=== PATIENT | male | born 1960 | race Caucasian/White ===

== ENCOUNTER 2025-10-08 09:59 | Inpatient (IN) | payer MEDICAID ==
[~2025-10-08] VITALS: Ht 182.9 cm; Wt 70.8 kg
--- NOTE | 2025-10-08 10:38 | Physician Documentation ---
History of Present Illness ~ Chief Complaint: Bite-animal Stated Complaint: DOG BITE Time Seen by MD: 10:24 HPI 64-year-old male presents to the ED with left arm wound secondary to a dog bite to and a half weeks ago. The patient has been evaluated at [facility] through wound care placed on antibiotics however there was concerns about the flap where the dog bite occured. Denies any fevers and was placed on antibiotics but he is no longer taking any. Denies any increased pain or swelling but reports that the wound is not healing well. Day of Onset: Oct 08, 2025 Tetanus within 5 years?: Yes (2024) Medication Reconciliation Allergies: Coded Allergies: No Known Allergies (Unverified , 10/08/25) Review of Systems All Other Systems at this time: Reviewed and Negative ROS As stated above in the HPI, otherwise all systems are reviewed and negative. Physical Exam Vital Signs: Temperature: 97.6, Source: Temporal, Heart Rate: 80, Respiratory Rate: 16, BP: 105/69, Pulse Oximetry: 94, Weight: 70.800 Oxygen Flow Rate: 0 Physical Exam General: Alert, no apparent distress. HEENT: PERRL, EOMI, no injection, moist mucous membranes. Neck: Full range of motion. Respiratory: Lungs clear, no respiratory distress. Extremities: Normal range of motion, no deformity. Arm has a notable poor healing dog bite with what appears to be necrotic tissue anterior aspect of the left forearm. Libby are currently in place that has notable discharge and drainage. Surrounding erythema Neurologic: Oriented x4. Psychiatric: Normal mood and affect. Skin: Normal color, warm and dry. No edema, no ecchymosis. Progress Results/Orders Results/Orders Vital Signs 10/08/25 10:09 Temp 97.6 Pulse 80 Resp 16 B/P (MAP) 105/69 Pulse Ox 94 O2 Flow Rate 0 Medical Decision Making Additional information obtaine: old records Findings I consulted with Dr. Vang as he was already advised of this the patient has a arrival requested hospitalist admission and likely washout and evaluation. Differential Dx:Considerations: Include: Abrasion, Allergic reaction, Anaphylaxis, Cellulitis, Contusion, Fracture, Hematoma, Insect envenomation, Laceration, Neurovascular injury, Punture wound, Retained foreign body, Urticaria, Other Departure Disposition: ADMITTED INPATIENT Impression: Primary Impression: Dog bite Additional Impression: Infection Condition: Stable Referrals: NO PRIMARY CARE PROVIDER (PCP) Signature Scribe Signature: t Attestation: Scribed for Eder Dobbs Direct Support Staff by Eder Walker NP . 10/08/25 10:46 EDER DOBBS NP Oct 08, 2025 10:38
[2025-10-08] MEDS ORDERED: potassium Cl 40MEQ/1/2NS 520ml 520 ML IV PRN (11:20)
[2025-10-08] MEDS ORDERED: morphine 4 MG/ML inj SYRINge IV PRN (11:20)
[2025-10-08] MEDS ORDERED: bisacodyl 10mg suppository rectal RC PRN (11:20)
[2025-10-08] MEDS ORDERED: magnesium sulf-water 2g/50mL 50 ML IV PRN (11:20)
[2025-10-08] MEDS ORDERED: magnesium Cl slow-release 64mg tablet PO PRN (11:20)
[2025-10-08] MEDS ORDERED: ondansetron/PF 4mg/2ml inj IV PRN (11:20)
[2025-10-08] MEDS ORDERED: magnesium sulf-water 4G/100mL 100 ML IV PRN (11:20)
[2025-10-08] MEDS ORDERED: magnesium hydroxide 30ml (MOM) UD suspension PO PRN (11:20)
[2025-10-08] MEDS: ampicillin inj 2 GM in normal saline 100ml IV soln 100 ML IV ONE (11:24)
[2025-10-08] MEDS: normal saline 1000ML IV soln IVB ONE (11:24)
--- NOTE | 2025-10-08 11:39 | ELECTROCARDIOGRAPH REPORT ---
[facility] Test Date: 2025-10-08 Test Time: 11:38:12 Pat Name: KATLYN ROBERTSON Department: [facility] Patient ID: [facility]-[id number] Room: [place] [address] Gender: M [employer]: : 1960 Requested By: EDER DOBBS Order Number: [id number] Reading MD: Dr. Jose Yee Measurements Intervals [place] Rate: 69 P: 64 WI: 172 QRS: 20 QRSD: 88 T: 51 QT: 383 QTc: 411 Interpretive Statements Sinus rhythm Abnormal inferior Q waves ST elevation, consider inferior injury Electronically Signed On 10-09-2025 21:13:[address] Jose Yee Please click the below link to view image of tracing.
[2025-10-08 11:52] LABS: MEAN PLATELET VOLUME 6.6 FL (7.4-10.4); RED CELL DISTRIBUTION WIDTH 15.9 % (11.5-14.5)
[2025-10-08 12:02] LABS: CREATININE 2.08 MG/DL (0.60-1.10); TOTAL CARBON DIOXIDE 17.7 MMOL/L (24-32); eCRCL 36 ML/MIN; eGFR 32 ML/MIN
[2025-10-08] MEDS: normal saline 1000ml 1,000 ML IV SCH (12:55)
[2025-10-08] MEDS ORDERED: EZET10TA80 PO (13:02)
[2025-10-08] MEDS ORDERED: ESCI-8 PO (13:02)
[2025-10-08] MEDS ORDERED: OMEP40CA21 PO (13:02)
[2025-10-08] MEDS ORDERED: AMLO5TAB16 PO (13:02)
[2025-10-08] MEDS ORDERED: APIX5TAB3 PO (13:02)
[2025-10-08] MEDS ORDERED: POTA-366 PO (13:02)
--- NOTE | 2025-10-08 13:16 | HISTORY AND PHYSICAL-Residence ---
History & Physical Providers to CC Resident Creating Document: ALFREDABRIONNA GARCIA RES ~ History of Present Illness Reason for Admit\Complaint: LEFT ARM WOUND, DOG BITE History of Present Illness This is a 64-year-old male presented to the ED with complaints of a wound on his left forearm. Patient reports that he works at [employer], and 2-1/2 weeks ago he was bit by a dog. Patient then went to [facility] where the wound was well irrigated and sadaf were placed to track down the skin flap. Patient was then sent back home on oral antibiotics which were prescribed for 10 days. Patient reports that he completed the full course of his antibiotics, went back to get his wound checked, when his skin doctor referred him back to our facility ED. Patient denies any other complaints of fevers, chills. Patient currently rates the pain as 8/10 in intensity. There is a large wound, with well-formed granulation tissue, not draining any pus, covered with skin flap with sadaf, well demarcated present on the patient's left forearm. Patient reports that he did get a tetanus shot. The dog was watched afterwards and was found to be in a normal state. Patient has a history of DVT in the left lower leg currently on blood thinner Eliquis. Allergies: Coded Allergies: No Known Allergies (Unverified , 10/08/25) Home Medications Home Medications Active Reported Potassium Chloride 20 Meq Tablet.er 1 Tab PO DAILY Eliquis (Apixaban) 5 Mg Tablet 1 Tab PO BID Ezetimibe 10 Mg Tablet 1 Tab PO DAILY Prilosec (Omeprazole) 40 Mg Capsule 1 Cap PO DAILY Amlodipine Besylate 5 Mg Tablet 1 Tab PO DAILY Escitalopram Oxalate 10 Mg Tablet 1 Tab PO DAILY Past Medical History Past Medical History History of DVT left lower extremity on Eliquis No other significant medical history Past Surgical History Surgical History Comment 2 back surgeries due to bulging discs Right knee surgery for ligament repair Family History Family History: Patient reports no known family medical history. Past Social History Social History Comment Patient started smoking since he was 18 years, continues to smoke currently 1 pack per day Patient drinks a beer now and then, once a week Denies any other illicit drug use Patient lives at home with his in [facility] with activities of daily living ROS All Other Systems: Reviewed and Negative Exam Vitals: Vital Signs Date Time Temp Pulse Resp B/P (MAP) Pulse Ox O2 Delivery O2 Flow Rate FiO2 10/08/25 12:43 102 18 130/77 (94) 99 0 10/08/25 10:09 97.6 General: General: Alert, awake, oriented, not in acute distress HEENT: PERRLA, no icterus, pallor, lymphadenopathy, carotid bruit Respiratory system: Bilateral vesicular breath sounds heard, no adventitious breath sounds CVS: S1-S2 heard, no murmurs/rubs/gallop GI: Soft, nontender, no organomegaly, no guarding/rigidity, bowel sounds present Neuro: No focal neurological deficits present Mental status exam: alert and consciousness, orientation, memory, speech - Cranial nerve test: Cranial nerves 2-12 intact - Motor system: Nutrition, Tone 3+, Power 5/5, no involuntary movements - Sensory system: Intact - Reflex testing: Biceps, triceps and knee reflexes 2+ - Cerebellar: Normal Extremities: left volar forearm has a 4 cm area of the necrotic tissues surrounding erythema and some drainage. He is able to move his fingers well and claims normal sensation distally. Skin: Warm and dry, dilated veins of the bilateral lower extremities, multiple petechiae present in bilateral upper extremities Diagnostic Data Last Recorded Lab Results: 10/08/25 1140 10/08/25 1140 Advance Care Planning Advanced Care plannin - 30 Minutes (Full code) Additional Plan Left forearm wound Dog bite Failed outpatient treatment Patient was bit by a dog 2 1/2 half weeks ago on his left forearm Currently patient is hemodynamically stable WBC count normal, Procal, lactic acid normal. Patient started on antibiotics Augmentin [id number] mg Patient on fluids NS 100 cc/hour Pain management by morphine q.6h p.r.n., [place] q.8h p.r.n. Dr. Vang has been consulted, patient will undergo surgical debridement of the necrotic tissue tomorrow in the a.m. ECHO Likely prerenal Patient's baseline creatinine unknown Current creatinine 2.08, BUN 49 Patient on fluids NS 100 cc/hour We will continue to monitor his kidney function Mild hypokalemia- K-3.1 Patient on potassium replacement protocol History of DVT Patient on Eliquis 5 mg Code status: Full code Diet: Regular diet DVT prophylaxis: Eliquis Disposition: Patient transferred to the surgical floor. We will continue to monitor him. Patient likely to undergo surgical debridement of necrotic tissue tomorrow. Brionna Paez PGY-1 Date of Service: Oct 08, 2025 Billing Provider: LESLY GÓMEZ MD Common Visit Codes: [id number] INP/OBS CARE (HIGH) Secondary Visit Codes: [id number] CARE PLAN 30 MINUTES BRIONNA PAEZ, RES Oct 08, 2025 13:16 LESLY GÓMEZ MD Oct 08, 2025 19:55
[2025-10-08 13:45] VITALS: BP 108/66; PULSE 76; RESP 16; TEMP 98; O2SAT 95
--- NOTE | 2025-10-08 14:07 | CONSULTATION REPORT ---
History of Present Illness Providers to CC ~ Reason for Admit\Admit Dx: LEFT ARM WOUND, DOG BITE Refering MD: Jessica History of Present Illness This is a 64-year-old male presented to the ED with complaints of a wound on his left forearm. Patient reports that he works at [employer], and 2-1/2 weeks ago he was bit by a dog. Patient then went to [facility] where the wound was well irrigated and sadaf were placed to track down the skin flap. Patient was then sent back home on oral antibiotics which were prescribed for 10 days. And treated by Dr. Alyson Schneider at wound care and she was concerned that the wound was becoming worse. The patient was then advised to return to the ER today to be admitted Allergies: Coded Allergies: No Known Allergies (Unverified , 10/08/25) Home Medications Home Medications Active Reported Potassium Chloride 20 Meq Tablet.er 1 Tab PO DAILY Eliquis (Apixaban) 5 Mg Tablet 1 Tab PO BID Ezetimibe 10 Mg Tablet 1 Tab PO DAILY Prilosec (Omeprazole) 40 Mg Capsule 1 Cap PO DAILY Amlodipine Besylate 5 Mg Tablet 1 Tab PO DAILY Escitalopram Oxalate 10 Mg Tablet 1 Tab PO DAILY Past Family History Family History: Patient reports no known family medical history. Physical Exam Last Vital Signs Recorded: Temperature: 98.0, Source: Oral, Heart Rate: 76, Respiratory Rate: 16, BP: 108/66, Pulse Oximetry: 95, Weight: 70.800 General Appearance: alert, no apparent distress Extremities Left volar forearm has a 4 cm area of the necrotic tissues surrounding erythema and some drainage. He is able to move his fingers well and claims normal sensation distally. Results Diagram Lab Result Diagram: 10/08/25 1140 10/08/25 1140 Assessment/Plan Problems/Diagnosis: (1) Dog bite (2) Infection Additional Plan Surgical debridement is planned for tomorrow morning to remove necrotic tissue and completely irrigate the area. In the several debridements. Spoke with the patient about his condition and he agrees to proceed with surgery. AMBER LOCKWOOD Jr., MD Oct 08, 2025 14:07
[2025-10-08] MEDS: morphine 4 MG/ML inj SYRINge IV PRN (14:13)
[2025-10-08 14:22] VITALS: RESP 16; O2SAT 95
[2025-10-08] MEDS: potassium Cl 20 mEq SR tablet PO PRN ×2 (16:48→21:03)
[2025-10-08] MEDS: amox tr/potassium clavulanate 875/125mg TAB PO SCH (17:41)
[2025-10-08 18:00] VITALS: BP 107/63; PULSE 77; RESP 16; TEMP 98.7; O2SAT 100
[2025-10-08] MEDS: heparin, porcine 5000 units/ml vial SQ SCH (20:00)
[2025-10-08] MEDS: K and/or MAG REPLACEMENT MC SCH (20:00)
[2025-10-08 20:30] VITALS: RESP 16
[2025-10-08 22:00] VITALS: BP 105/56; PULSE 94; RESP 16; TEMP 98.1; O2SAT 99
[2025-10-08] MEDS: HYDROcodone/acetaminophen 10/325mg tab PO PRN (22:39)
[2025-10-09] VITALS (19 sets, daily range): BP systolic 93–138; BP diastolic 45–85; PULSE 60–104; RESP 12–18; TEMP 97.1–99.2; O2SAT 92–100
[2025-10-09 04:22] LABS: MEAN PLATELET VOLUME 6.4 FL (7.4-10.4); RED CELL DISTRIBUTION WIDTH 16.1 % (11.5-14.5)
[2025-10-09 04:32] LABS: APTT 28 SECONDS (22-32); CREATININE 0.98 MG/DL (0.60-1.10); INR 1.0 INR; TOTAL CARBON DIOXIDE 17.1 MMOL/L (24-32); eCRCL 76 ML/MIN; eGFR 77 ML/MIN
[2025-10-09] MEDS ORDERED: BUPIVAcaine 2.5mg/ml inj 50ml vial (contains preservative) ONE (06:38)
[2025-10-09] MEDS: ceFAZolin 2gm/dext,iso 50mL 50 ML IV ONE (08:03)
[2025-10-09] MEDS ORDERED: fentaNYL/PF 50MCG/1 ML 2ML syringe ONE ×2 (08:10→08:29)
[2025-10-09] MEDS ORDERED: midazolam 1 mg/ML 2ml injection ONE (08:11)
--- NOTE | 2025-10-09 08:44 | OPERATIVE REPORT ---
Operative Report Providers to ~ Date of Procedure: Oct 09, 2025 Pre-Operative Diagnosis: left arm wound , dog bite infection Post-Operative Diagnosis SAME as PRE-Op Procedure Performed Left forearm debridement skin and subcutaneous tissues Surgeon: Jorge Vang MD [employer] Property Loss Specialist None Anesthesiologist: Alfred Luong Type of Anesthesia: General Findings: The necrotic tissue and infected subcutaneous tissue with no exposed tendons or nerves Complications None Prosthetics\Implants used: None Estimated Blood Loss: None Specimen Removed: None Description of Procedure: The patient is a 64-year-old man who was bitten by a dog several weeks ago. He was seen at [facility] and referred to wound care. Knee was then referred from wound care for worsening of the wound. Surgery is indicated to debride n onviable tissue. Risks and benefits were discussed with the patient some of which include but are not limited to infection, bleeding, repeat surgery and stiffness. He agreed to proceed. He was brought to the operating room where the anesthetic was given. The arm was then prepped and draped in usual manner. A tourniquet was elevated in the arm with 1st on the upper arm and debridement was done to remove nonviable tissue sharply and with a curette. The wound did not extend deep to the flexor tendons or to the median nerve. The tourniquet was then let down and any small bleeders were cauterized. There was some flap of skin which was nonviable which was excised up to the wrist crease, the area in question was approximately 10 cm x 10 cm in size. Pulse lavage was used with 3 L of saline followed by another L of IrriSept antibiotic solution. Marcaine was then injected and a sterile dressing was applied. The patient was awakened and taken to the recovery room in stable condition and tolerated the procedure well. JORGE David MD, Jr., MD Oct 09, 2025 08:44
[2025-10-09] MEDS ORDERED: propofol inj 20 ML IV ONE (08:47)
--- NOTE | 2025-10-09 09:55 | PROGRESS NOTE- Residence ---
Progress Note - Resident Providers to CC Resident Creating Document: BRIONNA PAEZ RES ~ Antibiotic Timeout Antibiotic Ordered?: Yes Subjective Patient was seen and examined at the bedside today. Patient was taken to the OR for necrotic tissue debridement of the wound by Dr. Vang. Objective Vital Signs Date Time Temp Pulse Resp B/P (MAP) Pulse Ox O2 Delivery O2 Flow Rate FiO2 10/09/25 09:40 61 16 130/77 (94) 92 Room Air 0.0 10/09/25 08:48 97.2 Result Diagram: 10/09/2540610/09/25406 General: Alert, awake, oriented, not in acute distress HEENT: PERRLA, no icterus, pallor, lymphadenopathy, carotid bruit Respiratory system: Bilateral vesicular breath sounds heard, no adventitious breath sounds CVS: S1-S2 heard, no murmurs/rubs/gallop GI: Soft, nontender, no organomegaly, no guarding/rigidity, bowel sounds present Neuro: No focal neurological deficits present Extremities: left volar forearm has a 4 cm area of the necrotic tissues surrounding erythema and some drainage. He is able to move his fingers well and claims normal sensation distally. Skin: Warm and dry, dilated veins of the bilateral lower extremities, multiple petechiae present in bilateral upper extremities Coagulation Studies Laboratory Tests Test 10/09/25 04:07 Prothrombin Time 10.1 SECONDS (9.0-12.0) INR International Normalized Ratio 1.0 INR Activated Partial Thromboplast Time 28 SECONDS (22-32) Coagulation Comments Plan Plan Left forearm wound Dog bite S/P surgical debridement of necrotic tissue done on Failed outpatient treatment Patient was bit by a dog 2 1/2 half weeks ago on his left forearm Currently patient is hemodynamically stable WBC count normal, Procal, lactic acid normal. Patient on antibiotics Augmentin 875/125 mg Patient on fluids NS 100 cc/hour Pain management by morphine q.6h p.r.n., [place] q.8h p.r.n. Left forearm debridement skin and subcutaneous tissues was done by Dr. Vang today. ECHO has resolved Likely prerenal Patient's baseline creatinine unknown Current creatinine 0.98 BUN 27 Patient on fluids NS 100 cc/hour We will continue to monitor his kidney function Mild hypokalemia resolved K-3.8 We will continue to monitor potassium levels History of DVT Patient on Eliquis 5 mg Code status: Full code Diet: Regular diet DVT prophylaxis: Vasu Paez PGY-1 Date of Service: Oct 09, 2025 Billing Provider: LESLY GÓMEZ MD Common Visit Codes: [id number] INP/OBS CARE(HIGH) BRIONNA PAEZ, RES Oct 09, 2025 09:55 LESLY GÓMEZ MD Oct 10, 2025 17:43
[2025-10-09] MEDS: HYDROcodone/acetaminophen 5mg/325mg tablet PO PRN (16:44)
[2025-10-09] MEDS: JUVEN Smoothie Arginine/Glut./Ca2+Bmb (Juven 19.3pkt) 240ml cup PO SCH (17:46)
[2025-10-10 04:01] LABS: MEAN PLATELET VOLUME 6.4 FL (7.4-10.4); RED CELL DISTRIBUTION WIDTH 16.6 % (11.5-14.5)
[2025-10-10 04:11] LABS: CREATININE 0.65 MG/DL (0.60-1.10); TOTAL CARBON DIOXIDE 20.5 MMOL/L (24-32); eCRCL 115 ML/MIN; eGFR > 90 ML/MIN
[2025-10-10 06:30] VITALS: BP 128/71; PULSE 69; RESP 14; TEMP 98.2; O2SAT 99
[2025-10-10] MEDS ORDERED: AMOX-580 PO (10:17)
--- NOTE | 2025-10-10 10:36 | DISCHARGE SUMMARY-Residence ---
Discharge Summary Providers to CC Resident Creating Document: KURT ERWIN, RES ~ Discharge Summary Admission Diagnosis: left arm wound , dog bite infection Hospital Course DATE OF ADMISSION: 10/08/2025 DATE OF DISCHARGE: 10/10/2025 Discharge Diagnosis\Comment: Left forearm wound secondary to dog bite, failed outpatient management Necrotic tissue status post surgical debridement Acute Kidney Injury (likely prerenal secondary to renal tubular stasis) Mild hypokalemia History of DVT Operations\Procedures: Left forearm surgical debridement Consultants: Dr. Vang Complications: None Condition on DC: Stable New Medications: Amox Tr/Potassium Clavulanate 875/125 MG (Augmentin 875/125 MG) 875 Mg-125 Mg Tablet 1 TAB PO BID@0830,1730 for 5 Days, #10 TAB Continued Medications: Amlodipine Besylate (Amlodipine Besylate) 5 Mg Tablet 1 TAB PO DAILY Apixaban (Eliquis) 5 Mg Tablet 1 TAB PO BID Escitalopram Oxalate (Escitalopram Oxalate) 10 Mg Tablet 1 TAB PO DAILY Ezetimibe (Ezetimibe) 10 Mg Tablet 1 TAB PO DAILY Omeprazole (Prilosec) 40 Mg Capsule 1 CAP PO DAILY Potassium Chloride (Potassium Chloride) 20 Meq Tablet.er 1 TAB PO DAILY Discharge Summary: History of Present Illness The patient is a 64-year-old male who presented to the ED with complaints of a wound on his left forearm. He works at [employer] and was bitten by a dog approximately 2 weeks ago. He initially went to [facility], where the wound was irrigated and sadaf were placed to secure the skin flap. He was discharged on oral antibiotics for 10 days, which he completed. He was later evaluated by Dr. Alyson Schneider at wound care, who expressed concern about worsening wound condition and referred him back to the ED for admission and possible surgical intervention. The patient denies fever or chills but reports persistent pain rated 8/10. He confirms receiving a tetanus shot. The dog was observed and found to be healthy. Hospital Course On presentation, the patient was hemodynamically stable. Physical exam revealed a large wound on the left volar forearm with necrotic tissue, surrounding erythema, and mild drainage. Granulation tissue was present under the skin flap secured with sadaf. Distal neurovascular status was intact. Labs showed normal WBC, normal procalcitonin and lactic acid, creatinine elevated at 2.08 (baseline unknown), BUN 49, and potassium 3.1. The patient was started on IV fluids (NS at 100 mL/hr), IV Augmentin 875/125 mg, and pain control with morphine and Eugene PRN. Potassium replacement protocol was initiated. Dr. Jorge Vang was consulted and recommended surgical debridement of necrotic tissue. The patient underwent left forearm surgical debridement under general anesthesia. Necrotic skin and infected subcutaneous tissue were excised (approximately 10 cm 10 cm area). No tendons or nerves were exposed. Pulse lavage with 3 L saline and 1 L IrriSept antibiotic solution was performed. Marcaine was injected for local analgesia, and a sterile dressing was applied. The patient tolerated the procedure well with no complications and minimal blood loss. Postoperatively, the patient remained stable. Pain was controlled, and wound care instructions were provided. ECHO was managed with IV fluids and monitoring of renal function. Hypokalemia was corrected. The patient continued Eliquis for DVT prophylaxis. Physical Examination at Discharge General: Alert, awake, oriented 3, cooperative, not in acute distress. HEENT: Normocephalic, atraumatic; pupils equal, round, reactive to light and accommodation (PERRLA); sclera anicteric; oral mucosa moist; no lymphadenopathy or carotid bruit. Neck: Supple, no jugular venous distention, no thyromegaly. Cardiovascular: Regular rate and rhythm; S1 and S2 present; no murmurs, rubs, or gallops; peripheral pulses palpable and symmetric. Respiratory: Bilateral vesicular breath sounds; no wheezes, rales, or rhonchi; chest expansion equal. Abdomen: Soft, non-tender, no guarding or rigidity; bowel sounds present; no hepatosplenomegaly. Extremities: Left Forearm: Post-debridement wound clean and dressed; approximately 10 cm 10 cm area previously debrided; no active bleeding or purulent drainage; surrounding erythema improved; sadaf removed during surgery; distal neurovascular status intact (normal sensation and movement of fingers); capillary refill <2 seconds. No edema, cyanosis, or clubbing in other extremities. Skin: Warm, dry; multiple petechiae noted on bilateral upper extremities; dilated veins on lower extremities; no jaundice or rashes. Vital Signs Date Time Temp Pulse Resp B/P (MAP) Pulse Ox O2 Delivery O2 Flow Rate FiO2 10/10/25 08:50 Room Air 0.0 21 10/10/25 08:22 69 10/10/25 06:30 98.2 14 128/71 (90) 99 Laboratory Tests Test 10/08/25 11:37 10/08/25 11:40 10/09/25 04:07 10/09/25 06:48 Lactic Acid Level 1.9 MMOL/L White Blood Count 9.0 X10'3 7.5 X10'3 Red Blood Count 2.91 X10'6 2.51 X10'6 Hemoglobin 10.1 g/dl 8.7 g/dl Hematocrit 30.0 % 26.2 % Mean Corpuscular Volume 103.4 FL 104.1 FL Mean Corpuscular Hemoglobin 34.8 PG 34.6 PG Mean Corpuscular Hemoglobin Concent 33.7 g/dL 33.2 g/dL Red Cell Distribution Width 15.9 % 16.1 % Platelet Count 249 X10'3 230 X10'3 Mean Platelet Volume 6.6 FL 6.4 FL Neutrophils (%) (Auto) 67.1 % 57.4 % Lymphocytes (%) (Auto) 26.5 % 34.0 % Monocytes (%) (Auto) 5.1 % 5.4 % Eosinophils (%) (Auto) 0.9 % 3.0 % Basophils (%) (Auto) 0.4 % 0.2 % Neutrophils # (Auto) 6.0 X10'3 4.3 X10'3 Lymphocytes # (Auto) 2.4 X10'3 2.6 X10'3 Monocytes # (Auto) 0.5 X10'3 0.4 X10'3 Eosinophils # (Auto) 0.1 X10'3 0.2 X10'3 Basophils # (Auto) 0.0 X10'3 0.0 X10'3 CBC Comment Sodium Level 138 MMOL/L 143 MMOL/L Potassium Level 3.1 MMOL/L 3.8 MMOL/L Chloride Level 107 MMOL/L 116 MMOL/L Carbon Dioxide Level 17.7 MMOL/L 17.1 MMOL/L Anion Gap 13 10 Blood Urea Nitrogen 49 MG/DL 27 MG/DL Creatinine 2.08 MG/DL 0.98 MG/DL Estimated GFR/1.73 m2 32 ML/MIN 77 ML/MIN BUN/Creatinine Ratio 23.6 27.6 Glucose Level 147 MG/DL 99 MG/DL Calcium Level 8.6 MG/DL 8.2 MG/DL Albumin 2.8 G/DL 2.3 G/DL Procalcitonin 0.07 NG/ML Chemistry Comments Prothrombin Time 10.1 SECONDS INR International Normalized Ratio 1.0 INR Activated Partial Thromboplast Time 28 SECONDS Coagulation Comments Glucometer 105 mg/dl Test 10/10/25 03:18 White Blood Count 5.7 X10'3 Red Blood Count 2.17 X10'6 Hemoglobin 7.6 g/dl Hematocrit 22.4 % Mean Corpuscular Volume 103.1 FL Mean Corpuscular Hemoglobin 34.9 PG Mean Corpuscular Hemoglobin Concent 33.8 g/dL Red Cell Distribution Width 16.6 % Platelet Count 216 X10'3 Mean Platelet Volume 6.4 FL Neutrophils (%) (Auto) 53.7 % Lymphocytes (%) (Auto) 32.3 % Monocytes (%) (Auto) 6.6 % Eosinophils (%) (Auto) 7.1 % Basophils (%) (Auto) 0.3 % Neutrophils # (Auto) 3.1 X10'3 Lymphocytes # (Auto) 1.8 X10'3 Monocytes # (Auto) 0.4 X10'3 Eosinophils # (Auto) 0.4 X10'3 Basophils # (Auto) 0.0 X10'3 CBC Comment Sodium Level 142 MMOL/L Potassium Level 3.6 MMOL/L Chloride Level 115 MMOL/L Carbon Dioxide Level 20.5 MMOL/L Anion Gap 7 Blood Urea Nitrogen 10 MG/DL Creatinine 0.65 MG/DL Estimated GFR/1.73 m2 > 90 ML/MIN BUN/Creatinine Ratio 15.4 Glucose Level 90 MG/DL Calcium Level 8.0 MG/DL Albumin 2.0 G/DL Chemistry Comments Discharge Instructions Keep wound clean and dry; follow wound care instructions Monitor for signs of infection (redness, swelling, pus, fever) Complete antibiotic course Avoid strenuous activity with affected arm Follow-up with Dr. Vang in 35 days for wound check Monitor renal function and electrolytes with PCP in 1 week Return to ED for worsening pain, fever, or drainage *Problems/Diagnosis: (1) Dog bite Status: Acute (2) Infection Status: Acute Total Time Spent on D/C: > 30 Minutes Date of Service: Oct 10, 2025 Billing Provider: LESLY GÓMEZ MD Common Visit Codes: [id number] DISCH DAY >30min ERWIN,KURT RAHEEM, RES Oct 10, 2025 10:25 LESLY GÓMEZ MD Oct 10, 2025 17:44
[2025-10-10 11:00] VITALS: BP 113/68; PULSE 75; RESP 17; TEMP 99.3; O2SAT 99
== END 2025-10-10 14:00 | disposition home or self-care (01) | DRG 351 ==
LOC: ER 10:01 → ED HOLD 11:24 → SUR 3N 13:15
PROVIDERS: ADMIT Internal Medicine; ATTEND Internal Medicine
PROC: 0JBH0ZZ Excision of Left Lower Arm Subcutaneous Tissue and Fascia, Open Approach (ICD-10-PCS; principal; 2025-10-09 08:06)
DX: S51.852A Open bite of left forearm, initial encounter (principal); N17.9 Acute kidney failure, unspecified; E87.6 Hypokalemia; W54.0XXA Bitten by dog, initial encounter; Y93.89 Activity, other specified; Y92.89 Other specified places as the place of occurrence of the external cause; Y99.8 Other external cause status
CPT/HCPCS: 36415; 80048; 82948; 83605; 84145; 85025; 85610; 85730; 87040; 87081; 93005; 99285; A4618; A6223; A6446; A6449; A7000; G0378; J0290; J2250; J2270; J2704; J3010; J3490; J7030; J7120